=== PATIENT | female | born 1975 | race Caucasian/White ===

== ENCOUNTER 2017-01-12 06:19 | Day surgery (SDC) | payer OTHER ==
[~2017-01-12] VITALS: Ht 165.1 cm; Wt 106.6 kg
[~2017-01-12 06:19] MED LIST: ALLEGRA180 MG PO; AUGMENTIN875TAB PO; CELEBREX100 M1 PO; FLEXERIL PO; MELATONIN5 MG PO; NAPROSYN500 MG PO; NEXIUM40 M1 PO; NORCO1 TA1 PO; PRILOSEC20 MG/CAP PO; TRAMADOL HCL50 MG PO
[2017-01-12 14:24] VITALS: BP 120/60
== END 2017-01-12 14:30 | disposition home or self-care (01) | DRG 392 ==
LOC: ORM 06:19 → ENDO 06:19 → ORM 15:25
PROVIDERS: ATTEND Internal Medicine Gastroenterology
PROC: 0DB48ZX Excision of Esophagogastric Junction, Via Natural or Artificial Opening Endoscopic, Diagnostic (ICD-10-PCS; principal; 2017-01-12)
PROC: 0DB68ZX Excision of Stomach, Via Natural or Artificial Opening Endoscopic, Diagnostic (ICD-10-PCS; 2017-01-12)
DX: R13.10 Dysphagia, unspecified (principal); E66.01 Morbid (severe) obesity due to excess calories; K21.9 Gastro-esophageal reflux disease without esophagitis; K29.50 Unspecified chronic gastritis without bleeding; K31.7 Polyp of stomach and duodenum; Z98.84 Bariatric surgery status; Z86.010 Personal history of colon polyps

== ENCOUNTER → 2018-10-19 | Outpatient (REF) | payer OTHER ==
[2018-10-19 09:13] LABS: HEMOGLOBIN 12.1 g/dl (12.0-16.0); MEAN CORPUSCULAR HGB 29.7 pG CALC (26.0-32.0); MEAN CORPUSCULAR HGB CONC 31.8 g/L CALC (32.0-36.0); RED BLOOD COUNT 4.07 mill/uL (4.20-5.60); RED CELL DISTRI WIDTH 12.5 % (11.5-15.5)
[2018-10-19 09:15] LABS: MEAN CELL VOLUME 93.4 fL CALC (80.0-100.0)
[2018-10-19 09:42] LABS: ALBUMIN 3.7 g/dL (3.2-5.0); ALKALINE PHOSPHATASE 70 u/l (38-126); ANION GAP 10 (6-22 (CALC)); BILIRUBIN, TOTAL 0.5 mg/dL (0.0-1.4); BUN 16 mg/dL (7-17); BUN/CREATININE RATIO 20 (12-20 (CALC)); CARBON DIOXIDE 30 mmol/l (22-30); CHLORIDE 104 mmol/l (95-108); CREATININE 0.8 mg/dL (0.5-1.0); GFR > 60 ML/MIN (>=60 (CALC)); GFR FOR AFR.AMER. > 60 ML/MIN (>=60 (CALC)); POTASSIUM 4.4 mmol/l (3.5-5.1); SGOT/AST 18 u/l (14-36); SODIUM 138 mmol/l (137-146)
== END | disposition home or self-care (01) | DRG 641 ==
LOC: LAB 07:19
DX: E66.01 Morbid (severe) obesity due to excess calories (principal); Z68.41 Body mass index [BMI] 40.0-44.9, adult

== ENCOUNTER 2019-03-21 06:36 | Day surgery (SDC) | payer OTHER ==
[~2019-03-21 06:36] MED LIST changes: +HAIR SKIN AND N1 TAB PO; +LASIX20 MG PO; +LISINOPRIL10 MG PO; +ZANTAC150 M1 PO
[2019-03-21 09:36] VITALS: BP 106/67
== END 2019-03-21 09:58 | disposition home or self-care (01) | DRG 951 ==
LOC: ORM 06:36
PROVIDERS: ATTEND Surgery
PROC: 0DJD8ZZ Inspection of Lower Intestinal Tract, Via Natural or Artificial Opening Endoscopic (ICD-10-PCS; principal; 2019-03-21)
DX: Z12.11 Encounter for screening for malignant neoplasm of colon (principal); Z86.010 Personal history of colon polyps; Z80.0 Family history of malignant neoplasm of digestive organs

== ENCOUNTER 2020-08-21 01:37 | Emergency (ER) | payer OTHER ==
[~2020-08-21] VITALS: Ht 162.6 cm; Wt 81.8 kg
[2020-08-21] MEDS ORDERED: ZINC50 M1 PO (02:43)
[2020-08-21 02:53] LABS: HEMATOCRIT 43.5 % (37.0-47.0); HEMOGLOBIN 14.1 g/dl (12.0-16.0); IMMATURE GRANULOCYTES 0.2 % (0.0-5.0); MEAN CORPUSCULAR HGB 29.5 pG CALC (26.0-32.0); MEAN CORPUSCULAR HGB CONC 32.4 g/dL CAL (32.0-36.0); NEUT# 8.84 thou/uL (2.00-7.15); RED BLOOD COUNT 4.78 mill/uL (4.20-5.60); RED CELL DISTRI WIDTH 11.7 % (11.5-15.5)
[2020-08-21 02:56] LABS: URINE BILIRUBIN - DIPSTICK NEGATIVE (NEGATIVE); URINE BLOOD DIPSTICK NEGATIVE (NEGATIVE); URINE COLOR YELLOW; URINE GLUCOSE - DIPSTICK NEGATIVE (NEGATIVE); URINE KETONE 40 mg/dL (NEGATIVE); URINE LEUK ESTERASE NEGATIVE (NEGATIVE); URINE NITRITE - DIPSTICK NEGATIVE (Negative); URINE PROTEIN - DIPSTICK NEGATIVE (NEG-TRACE); URINE SPECIFIC GRAVITY >=1.030; URINE UROBILINOGEN - DIPSTICK 0.2 E.U./dL (0.2)
[2020-08-21 03:13] LABS: ALBUMIN 4.6 g/dL (3.2-5.0); AMYLASE 102 u/l (30-110); ANION GAP 11 (6-22 (CALC)); BILIRUBIN, TOTAL 0.7 mg/dL (0.0-1.4); BUN 24 mg/dL (7-17); BUN/CREATININE RATIO 27 (12-20 (CALC)); CARBON DIOXIDE 28 mmol/l (22-30); CHLORIDE 104 mmol/l (95-108); CREATININE 0.9 mg/dL (0.5-1.0); GFR > 60 ML/MIN (>=60 (CALC)); GFR FOR AFR.AMER. > 60 ML/MIN (>=60 (CALC)); LIPASE 294 u/l (23-300); POTASSIUM 4.2 mmol/l (3.5-5.1); SODIUM 139 mmol/l (137-146); TOTAL PROTEIN 7.6 g/dL (6.3-8.2)
[2020-08-21 03:14] LABS: ALKALINE PHOSPHATASE 112 u/l (38-126); SGOT/AST 203 u/l (14-36)
[2020-08-21] MEDS ORDERED: DICYCLOMINE10 MG PO (04:41)
[2020-08-21] MEDS ORDERED: PHENERGAN25 MG/TAB PO (04:41)
[2020-08-21 04:43] VITALS: BP 110/53
== END 2020-08-21 05:00 | disposition home or self-care (01) | DRG 392 ==
LOC: ED 01:37
PROVIDERS: Family Medicine
DX: K52.9 Noninfective gastroenteritis and colitis, unspecified (principal); K83.4 Spasm of sphincter of Oddi; R74.01 Elevation of levels of liver transaminase levels; I10 Essential (primary) hypertension; Z98.84 Bariatric surgery status